=== PATIENT | male | born 1955 | race African-American/Black ===

== ENCOUNTER 2017-04-03 19:17 | Emergency (ER) | payer OTHER ==
[~2017-04-03] VITALS: Ht 175.3 cm; Wt 84.1 kg
[~2017-04-03 19:17] MED LIST: AFRIN 12 HOUR0.05 %; MUCINEX DM1 TA1 PO; [UNRECOGNIZED DRUG - OTHER] PO
[2017-04-03 19:21] VITALS: BP 154/97
[2017-04-03] MEDS ORDERED: KEFLEX500 MG PO (19:51)
[2017-04-03] MEDS ORDERED: PERCOCET 5/325M1 TAB PO (19:51)
== END 2017-04-03 20:11 | disposition home or self-care (01) | DRG 605 ==
LOC: ED 19:17
PROC: 0HQKXZZ Repair Right Lower Leg Skin, External Approach (ICD-10-PCS; principal; 2017-04-03)
DX: S81.811A Laceration without foreign body, right lower leg, initial encounter (principal); W22.8XXA Striking against or struck by other objects, initial encounter; Y93.89 Activity, other specified; Y92.89 Other specified places as the place of occurrence of the external cause; Y99.0 Civilian activity done for income or pay

== ENCOUNTER 2021-03-21 10:05 | Emergency (ER) | payer OTHER, BC ==
[~2021-03-21] VITALS: Ht 175.3 cm; Wt 99.0 kg
[2021-03-21 10:05] VITALS: BP 148/82
[~2021-03-21 10:05] MED LIST changes: +KEFLEX500 MG PO; +PERCOCET 5/325M1 TAB PO
[2021-03-21] MEDS ORDERED: JANUVIA100 MG PO (10:35)
[2021-03-21] MEDS ORDERED: TRAMADOL HYDROC50 M1 PO (11:25)
== END 2021-03-21 11:58 | disposition home or self-care (01) | DRG 563 ==
LOC: ED 10:05
DX: S42.135A Nondisplaced fracture of coracoid process, left shoulder, initial encounter for closed fracture (principal); I10 Essential (primary) hypertension; E11.9 Type 2 diabetes mellitus without complications; W01.0XXA Fall on same level from slipping, tripping and stumbling without subsequent striking against object, initial encounter; Y92.89 Other specified places as the place of occurrence of the external cause; Y99.0 Civilian activity done for income or pay; Z79.84 Long term (current) use of oral hypoglycemic drugs

== ENCOUNTER 2021-06-15 22:09 | Emergency (ER) | payer BC ==
[~2021-06-15] VITALS: Ht 175.3 cm; Wt 90.0 kg
[~2021-06-15 22:09] MED LIST changes: +JANUVIA100 MG PO; +TRAMADOL HYDROC50 M1 PO
[2021-06-15 22:54] LABS: HEMATOCRIT 40.2 % (39.0-50.0); IMMATURE GRANULOCYTES 0.6 % (0.0-5.0); MEAN CELL VOLUME 86.1 fL CALC (80.0-100.0); MEAN CORPUSCULAR HGB 26.6 pG CALC (26.0-32.0); MEAN CORPUSCULAR HGB CONC 30.8 g/dL CAL (32.0-36.0); NEUT# 5.18 thou/uL (1.82-7.42); RED BLOOD COUNT 4.67 mill/uL (4.70-6.10); RED CELL DISTRI WIDTH 12.2 % (11.5-15.5)
[2021-06-15 23:07] LABS: HEMOGLOBIN 12.4 g/dl (14.0-18.0)
[2021-06-15 23:17] LABS: ALBUMIN 3.8 g/dL (3.2-5.0); ALKALINE PHOSPHATASE 98 u/l (38-126); ANION GAP 13 (6-22 (CALC)); BUN 8 mg/dL (8-23); BUN/CREATININE RATIO 10 (12-20 (CALC)); CARBON DIOXIDE 29 mmol/l (22-30); CHLORIDE 100 mmol/l (95-108); CREATININE 0.8 mg/dL (0.7-1.3); GFR > 60 ML/MIN (>=60 (CALC)); GFR FOR AFR.AMER. > 60 ML/MIN (>=60 (CALC)); POTASSIUM 3.9 mmol/l (3.5-5.1); SGOT/AST 23 u/l (19-48); SODIUM 138 mmol/l (137-146); TOTAL PROTEIN 7.2 g/dL (6.3-8.2)
[2021-06-15 23:20] LABS: ACT PARTIAL THROMBO TIME 20.5 SECONDS (20.0-32.5); INTERNATIONAL NORMALIZED RATIO 0.9 RATIO (0.7-1.3); PROTHROMBIN TIME 9.5 SECONDS (9.0-12.5)
[2021-06-15 23:23] LABS: BILIRUBIN, TOTAL 0.3 mg/dL (0.0-1.4)
[2021-06-16 00:21] VITALS: BP 141/69
== END 2021-06-16 00:21 | disposition home or self-care (01) | DRG 305 ==
LOC: ED 22:09
DX: I10 Essential (primary) hypertension (principal); E11.65 Type 2 diabetes mellitus with hyperglycemia; Z79.84 Long term (current) use of oral hypoglycemic drugs; Z20.822 Contact with and (suspected) exposure to COVID-19

== ENCOUNTER 2021-07-03 22:55 | Emergency (ER) | payer BC ==
[~2021-07-03] VITALS: Ht 175.3 cm; Wt 84.1 kg
[2021-07-04 02:02] LABS: HEMATOCRIT 42.6 % (39.0-50.0); HEMOGLOBIN 13.5 g/dl (14.0-18.0); IMMATURE GRANULOCYTES 1.2 % (0.0-5.0); MEAN CORPUSCULAR HGB 26.3 pG CALC (26.0-32.0); MEAN CORPUSCULAR HGB CONC 31.7 g/dL CAL (32.0-36.0); NEUT# 5.62 thou/uL (1.82-7.42); RED BLOOD COUNT 5.13 mill/uL (4.70-6.10); RED CELL DISTRI WIDTH 11.9 % (11.5-15.5)
[2021-07-04 02:14] LABS: ALBUMIN 3.9 g/dL (3.2-5.0); ALKALINE PHOSPHATASE 87 u/l (38-126); AMYLASE 65 u/l (30-110); ANION GAP 15 (6-22 (CALC)); BUN 12 mg/dL (8-23); BUN/CREATININE RATIO 13 (12-20 (CALC)); CARBON DIOXIDE 24 mmol/l (22-30); CHLORIDE 97 mmol/l (95-108); GFR > 60 ML/MIN (>=60 (CALC)); GFR FOR AFR.AMER. > 60 ML/MIN (>=60 (CALC)); SGOT/AST 31 u/l (19-48); SODIUM 132 mmol/l (137-146); TOTAL PROTEIN 7.7 g/dL (6.3-8.2)
[2021-07-04 02:24] LABS: BILIRUBIN, TOTAL 0.6 mg/dL (0.0-1.4)
[2021-07-04 02:26] LABS: MYOGLOBIN 30 ng/mL (0 - 121)
[2021-07-04 04:20] LABS: URINE BILIRUBIN - DIPSTICK NEGATIVE (NEGATIVE); URINE BLOOD DIPSTICK TRACE-INTACT (NEGATIVE); URINE COLOR YELLOW; URINE GLUCOSE - DIPSTICK >=1000 mg/dL (NEGATIVE); URINE KETONE 15 mg/dL (NEGATIVE); URINE LEUK ESTERASE NEGATIVE (NEGATIVE); URINE PROTEIN - DIPSTICK 30 mg/dL (NEG-TRACE); URINE UROBILINOGEN - DIPSTICK 0.2 E.U./dL (0.2)
[2021-07-04 04:22] LABS: URINE NITRITE - DIPSTICK NEGATIVE (Negative)
[2021-07-04 04:28] LABS: URINE BACTERIA FEW hpf; URINE EPITHELIAL CELLS FEW EPI/hpf (0-FEW); URINE FINE GRAN CAST FEW lpf; URINE HYALINE CAST FEW lpf (NONE-RARE); URINE MUCUS FEW hpf (NONE-FEW)
[2021-07-04] MEDS ORDERED: ONDANSETRON4 MG PO (04:29)
[2021-07-04] MEDS ORDERED: BACTRIM DS1 TAB PO (04:29)
[2021-07-04 05:06] VITALS: BP 140/83
== END 2021-07-04 04:57 | disposition home or self-care (01) | DRG 178 ==
LOC: ED 22:55
PROVIDERS: Emergency Medicine
DX: U07.1 COVID-19 (principal); A08.39 Other viral enteritis; N39.0 Urinary tract infection, site not specified; E11.9 Type 2 diabetes mellitus without complications
CPT/HCPCS: Q9967

== ENCOUNTER 2022-04-23 18:13 | Emergency (ER) | payer OTHER ==
[~2022-04-23] VITALS: Ht 175.3 cm; Wt 84.0 kg
[~2022-04-23 18:13] MED LIST changes: +BACTRIM DS1 TAB PO; +ONDANSETRON4 MG PO
[2022-04-23 18:17] VITALS: BP 143/89
[2022-04-23 18:30] VITALS: BP 138/83
[2022-04-23 18:58] LABS: HEMATOCRIT 42.2 % (39.0-50.0); HEMOGLOBIN 13.3 g/dl (14.0-18.0); MEAN CELL VOLUME 84.9 fL CALC (80.0-100.0); MEAN CORPUSCULAR HGB 26.8 pG CALC (26.0-32.0); MEAN CORPUSCULAR HGB CONC 31.5 g/dL CAL (32.0-36.0); NEUT# 4.03 thou/uL (1.82-7.42); RED BLOOD COUNT 4.97 mill/uL (4.70-6.10)
[2022-04-23 19:00] VITALS: BP 119/91
[2022-04-23 19:14] LABS: ALBUMIN 4.3 g/dL (3.2-5.0); ALKALINE PHOSPHATASE 69 u/l (38-126); BUN 15 mg/dL (8-23); BUN/CREATININE RATIO 13 (12-20 (CALC)); C-REACTIVE PROTEIN < 0.5 mg/dL (0-0.9); CARBON DIOXIDE 23 mmol/l (22-30); CHLORIDE 108 mmol/l (95-108); CREATININE 1.1 mg/dL (0.7-1.3); GFR FOR AFR.AMER. > 60 ML/MIN (>=60 (CALC)); GFR OTHER RACES > 60 ML/MIN (>=60 (CALC)); POTASSIUM 4.1 mmol/l (3.5-5.1); SGOT/AST 24 u/l (19-48); TOTAL PROTEIN 7.5 g/dL (6.3-8.2)
[2022-04-23 19:18] LABS: ANION GAP 13 (6-22 (CALC)); BILIRUBIN, TOTAL 0.2 mg/dL (0.0-1.4); SODIUM 140 mmol/l (137-146)
[2022-04-23] MEDS ORDERED: MEDDOSEPAK PO (19:54)
[2022-04-23] MEDS ORDERED: ULTRAM50 M1 PO (19:54)
[2022-04-23 20:14] VITALS: BP 138/83
[2022-04-23 20:31] VITALS: BP 116/80
== END 2022-04-23 21:06 | disposition home or self-care (01) | DRG 556 ==
LOC: ED 18:13
PROVIDERS: Nurse Practitioner
DX: M79.632 Pain in left forearm (principal); Z98.890 Other specified postprocedural states

== ENCOUNTER 2023-06-11 07:09 | Day surgery (SDC) | payer MEDICARE ==
[~2023-06-11 07:09] MED LIST changes: +JARDIANCE25 MG PO; +LOSARTAN POTASS50 MG PO; +MEDDOSEPAK PO; +METFORMIN HCL1000 MG PO; +NEXIUM2.5 MG PO; +PRAVASTATIN SOD10 MG PO; +TAMSULOSIN0.4 MG PO; +ULTRAM50 M1 PO
== END 2023-06-11 07:45 | disposition home or self-care (01) ==
LOC: ENDO 07:09 → ORM 07:30 → ENDO 07:45 → ORM 09:30 → ENDO 09:30
PROVIDERS: ATTEND Internal Medicine Gastroenterology
DX: R19.5 Other fecal abnormalities (principal); D64.9 Anemia, unspecified; K21.9 Gastro-esophageal reflux disease without esophagitis; E11.42 Type 2 diabetes mellitus with diabetic polyneuropathy; Z79.84 Long term (current) use of oral hypoglycemic drugs; Z53.09 Procedure and treatment not carried out because of other contraindication

== ENCOUNTER 2023-07-02 11:00 | Day surgery (SDC) | payer MEDICARE ==
[~2023-07-02] VITALS: Ht 175.3 cm; Wt 86.2 kg
[~2023-07-02 11:00] MED LIST changes: +CIALIS2.5 MG PO; +VITAMIN B-121000 MCG PO; +VITAMIN C500 M4 PO; +[UNRECOGNIZED DRUG - OTHER] PO
[2023-07-02 12:48] VITALS: BP 147/90
== END 2023-07-02 13:20 | disposition home or self-care (01) ==
LOC: ORM 11:00
PROVIDERS: ATTEND Internal Medicine Gastroenterology
PROC: 0DJD8ZZ Inspection of Lower Intestinal Tract, Via Natural or Artificial Opening Endoscopic (ICD-10-PCS; principal; 2023-07-02)
PROC: 0DB98ZX Excision of Duodenum, Via Natural or Artificial Opening Endoscopic, Diagnostic (ICD-10-PCS; 2023-07-02)
PROC: 0DB78ZX Excision of Stomach, Pylorus, Via Natural or Artificial Opening Endoscopic, Diagnostic (ICD-10-PCS; 2023-07-02)
PROC: 0DB48ZX Excision of Esophagogastric Junction, Via Natural or Artificial Opening Endoscopic, Diagnostic (ICD-10-PCS; 2023-07-02)
DX: Z12.11 Encounter for screening for malignant neoplasm of colon (principal); K57.30 Diverticulosis of large intestine without perforation or abscess without bleeding; K64.8 Other hemorrhoids; K44.9 Diaphragmatic hernia without obstruction or gangrene; K29.70 Gastritis, unspecified, without bleeding; K31.7 Polyp of stomach and duodenum; D64.9 Anemia, unspecified; K21.9 Gastro-esophageal reflux disease without esophagitis; E11.42 Type 2 diabetes mellitus with diabetic polyneuropathy; Z79.84 Long term (current) use of oral hypoglycemic drugs
CPT/HCPCS: 43239; G0121